=== PATIENT | male | born 1955 | race Caucasian/White ===

== ENCOUNTER 2019-01-13 09:10 | Inpatient (IN) | payer OTHER ==
[2019-01-04 12:41] LABS: URINE BILIRUBIN NEGATIVE (Negative); URINE BLOOD NEGATIVE (Negative); URINE CLARITY CLEAR; URINE COLOR YELLOW; URINE GLUCOSE-RANDOM* NEGATIVE (Negative); URINE KETONES NEGATIVE (Negative); URINE LEUKOCYTES-REFLEX NEGATIVE (Negative); URINE NITRITE-REFLEX NEGATIVE (Negative); URINE PROTEIN (DIPSTICK) NEGATIVE (Negative)
[2019-01-04 12:51] LABS: HEMATOCRIT 46.3 % (42.0-52.0); HEMOGLOBIN 15.4 gm/dL (14.0-18.0); MCH 31.8 pg (26.0-34.0); MCHC 33.2 g/dL (28.0-37.0); MCV 95.8 fL (80.0-100.0); RBC 4.83 mil/uL (4.50-6.00); RDW 13.5 % (10.5-14.5); WBC 7.5 thou/uL (4.0-11.0)
[2019-01-04 12:55] LABS: ALBUMIN 4.3 g/dL (3.4-5.0); CALCIUM 9.4 mg/dL (8.5-10.1); POTASSIUM 4.3 mmol/L (3.5-5.1)
[2019-01-04 12:59] LABS: PROTIME 10.5 Seconds (9.3-11.4)
--- NOTE | 2019-01-04 14:09 | NUR ---
BP ELEVATED AT PAC APPT. 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 PATIENT INSTRUCTED TO SEE PCP PRIOR TO SURGERY TO EVALUATE BP.
[2019-01-05 02:08] LABS: GLYCOHEMOGLOBIN (HGB A1C) 6.7 % (4.8-5.6)
--- NOTE | 2019-01-06 12:47 | EKG ---
[address] [address] ELECTROCARDIOGRAM REPORT Name: FEDERICA SAMPSON Room #: PRE IN [facility]#: [id number] Admission: Attend Phys: Derick Hassan MD Discharge: Date of : 59 Report #: [id number] THIS REPORT FOR: //name// [facility] Test Date: 2019-01-04 Test Time: 12:20:47 Pat Name: FEDERICA SAMPSON Department: Room: Gender: Rod Pointer: Ben PARRA : 1955 Requested By: Derick Hassan Order Number: [id number] MD: Onur Burch Measurements Intervals [place] Rate: 73 P: 54 PA: 150 QRS: 8 QRSD: 83 T: 19 QT: 353 QTc: 389 Interpretive Statements Sinus rhythm Normal tracing No previous ECG available for comparison Electronically Signed On 01-06-2019 12:47:31 CAPPING MACHINE OPERATOR by Onur Burch [email or web address] <ELECTRONICALLY SIGNED> By: Onur Burch MD, [facility] 01/06/19 1247 1220 1220 Onur Burch MD, FACC /EPI
--- NOTE | 2019-01-09 10:53 | NUR ---
PATIENT CALLED IN AND REPORTED THAT HE SAW HIS PCP REGARDING HIS BP. PCP STARTED HIM ON A BLOOD PRESSURE MEDICINE, PATIENT INSTRUCTED TO TAKE MEDICINE DOS. MEDICINE ADDED TO HIS LIST OF MEDICATIONS.
[~2019-01-13] VITALS: Ht 182.9 cm; Wt 107.5 kg
[~2019-01-13 09:10] MED LIST: CANDESARTAN CIL16 MG PO; FISH OIL 1,0001 EAC9 PO; IBUPROFEN 400400 M1 PO; INDOMETHACIN 5050 M1 PO; ZYLOPRIM300 MG PO
[2019-01-16 08:54] VITALS: BP 136/75
[2019-01-16 13:45] VITALS: BP 145/73
[2019-01-16 14:15] VITALS: BP 135/74
[2019-01-16 14:45] VITALS: BP 121/68
[2019-01-16 15:15] VITALS: BP 122/73
--- NOTE | 2019-01-16 18:47 | NUR ---
PT ARRIVED ON THE UNIT FROM OR. PT VSS, REPORTS PAIN CONTROLLED WITH ORAL ANALGESIC. PT WORKED WITH OT AND WHEN HE STOOD UP HE VOMITED X1. NURSE GAVE REGLAN IV ORDERED. PT IS ABLE TO TOLERATE JELLO AND CLEAR LIQUIDS AT THIS TIME. DRESSING IS DRY AND INTACT, ICE PACK ON RIGHT HIP. CALL LIGHT AND PERSONAL ITEMS IN REACH. WILL CONTINUE TO MONITOR.
[2019-01-16 19:43] VITALS: BP 133/82
--- NOTE | 2019-01-17 03:11 | NUR ---
ASSESSMENT COMPLETED.PT C/O PAIN ON HIS R HIP,MANAGED WITH PO MED.BLUE HOSE AND SCD'S TO BLE.PT CONT ON IVF AND IV ABX ORDERED.URINAL AT BEDSIDE.POST OP DRSG C/D/I.HEMOVAC IN PLACE.BG MONITORED ORDERED AT HS,WAS 154.ICE PACK TO R HIP.PT ATE SOME MORE JELLO THIS SHIFT,ABLE TO KEEP IT DOWN.PT RESTING ON HIS BED AT THIS TIME.FALL PRECAUTIONS IN PLACE,CALL LIGHT WITHIN REACH.
[2019-01-17 04:15] VITALS: BP 125/72
[2019-01-17 05:52] LABS: MCH 32.4 pg (26.0-34.0); MCHC 33.4 g/dL (28.0-37.0); MCV 97.1 fL (80.0-100.0); RBC 3.7 mil/uL (4.50-6.00); RDW 13.7 % (10.5-14.5); WBC 10.6 thou/uL (4.0-11.0)
[2019-01-17 06:08] LABS: CALCIUM 9.1 mg/dL (8.5-10.1); POTASSIUM 3.9 mmol/L (3.5-5.1)
[2019-01-17 08:15] VITALS: BP 114/71
--- NOTE | 2019-01-17 12:26 | O ---
[place] [address] OPERATIVE REPORT Name: FEDERICA SAMPSON Room #: 446-P [facility] IN M.R.#: [id number] Admission: 01/16/19 Attend Phys: Derick Hassan MD Discharge: Date of : 59 Report #: [id number] THIS REPORT FOR: //name// CC: Clinton Hassan DATE OF SERVICE: 01/16/2019 PREOPERATIVE DIAGNOSIS: End-stage degenerative arthritis, right hip. POSTOPERATIVE DIAGNOSIS: End-stage degenerative arthritis, right hip. PROCEDURE: Right total hip arthroplasty. SURGEON: Derick Hassan MD INDICATIONS: This 63-year-old gentleman has rather severe degenerative arthritis of the right hip with complete loss of joint space and some cystic degeneration of both the femoral head and acetabulum. He also has degenerative lumbar spondylosis with mild spondylolisthesis and some radiculopathy. It appears that the right hip pain is the more significant of these 2 problems. He has elected to go ahead with right total hip arthroplasty. DESCRIPTION OF PROCEDURE: The patient was taken to the operating room where he was placed under general anesthesia. Prophylactic intravenous antibiotics were administered. He was turned to the left lateral decubitus position. The right hip, thigh and leg were meticulously prepped and draped. A slightly curving posterolateral skin incision was made. This was carried through subcutaneous tissues and fascia to expose the posterior aspect of the hip joint. The short external rotators and capsule were taken down and preserved with several FiberWire sutures. The hip was dislocated posteriorly. Marked degenerative change in both the femoral head and acetabulum was noted. 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 A femoral neck osteotomy was performed. The canal was then prepared using reamers and hand broaches. The Juarez and Nephew hip system was utilized. The size 16 press-fit stem seemed to fit most appropriately. The calcar was trimmed down to an appropriate level. Attention was then directed to the acetabulum. Adequate exposure was established and the acetabulum was sequentially reamed, gradually advancing to a 56 mm reamer. A 56 mm outside diameter three-hole hemispherical StikTite shell was then inserted. This was placed in alignment with his true acetabulum, positioned this in about 20 degrees of anteversion and about 45 degrees off of vertical. It seated nicely and appeared to be secure. In addition, 3 cancellous screws were placed through the apex of the shell engaging good periacetabular bone. Excellent purchase was established. A 40-mm polyethylene liner was then inserted, positioning this with the 20-degree elevated rim at about the 10 o'clock posterior position. It seated nicely and [address] [place] [address] OPERATIVE REPORT Name: FEDERICA SAMPSON Room #: 446-P [facility] IN M.R.#: [id number] Admission: 01/16/19 Attend Phys: Derick Hassan MD Discharge: Date of : 59 Report #: [id number] appeared to be secure. A trial reduction was then performed. A 16 size femoral component with a high offset neck angle seemed to fit most appropriately. Several neck lengths were tried and a +4 mm neck length seemed to fit most appropriately. This resulted in satisfactory alignment, range of motion, stability and leg length. The trial stem was removed and the permanent Juarez and Nephew size 16 Synergy porous high offset stem was then inserted. This was impacted into position in about 15-20 degrees of anteversion. It seated nicely and appeared to be secure. A size 40 Oxinium femoral head with a +4 mm neck sleeve was then inserted. This was impacted on the Basilio taper. It seated nicely and appeared to be secure. The hip was then reduced. Alignment, range of motion, stability and leg length were assessed and felt to be satisfactory. The entire wound was copiously irrigated. Good hemostasis was established. The short external rotators and capsule were repaired back to bone using several drill holes through the greater trochanter. Excellent hip stability was established. A single Hemovac was left in the wound exiting through a separate stab incision. The fascia was then closed with multiple #1 Vicryl sutures. The subcutaneous tissues were closed with 0 Monocryl. The skin was closed with skin niki. A sterile dressing was applied. The patient was awakened and returned to recovery room in good condition. <ELECTRONICALLY SIGNED> By: Derick Hassan MD 01/17/19 1226 1157 1245 Derick Hassan MD /nt
--- NOTE | 2019-01-17 13:48 | NUR ---
PT ADMITTED RLEATED TO S/P R THR. CM REVIEWED CHART AND SPOKE WITH CARE TEAM. CM MET WITH PT AT BEDSIDE THIS DAY. PT IS A&O X4. CM ROLE INTRODUCED. PT INDICATED HE LIVES IN A HOUSE ALONE, BUT THAT HE PLANS TO DISCHARGE TO HIS FRIENDS HOUSE UPON DC. PT INIDCATED THERE WILL BE 2 STEPS FOR HIM THE ENTER THE HOME UPON DC AND THEN ALL NEEDS ON 1 LEVEL. PT INIDCATED HE HAD USED A CANE AT TIME SCOUT SNIPER. PT INIDCATED HIS FRIEND HAS A 4WW THAT HE CAN USE UPON DC BUT THAT HE WOULD NEED A FWW ISSUED UPON DC. PT WORKED WITH PT YESTERDAY AND TODAY AND PT IS HAVING [employer] AND VOMITING. PT NOT SURE IF HE WILL NEED HH OR OP PT AND OT. CM TO FOLLOW INDICATED WITH DC PLANNING.
[2019-01-17 16:39] VITALS: BP 114/55
--- NOTE | 2019-01-17 17:20 | NUR ---
PT IS AOX4, VSS, PAIN CONTROLLED WITH ORAL ANALGESIC. PT EXPERIENCED N/V WHILE WORKING WITH PHYSICAL THERAPY. PT VOMITED X2, RECEIVED REGLAN IV ORDERED. PT TOLERATING REGULAR DIET, NURSE REMOVED HEMOVAC DRAIN FROM RIGHT LEG. HIP DRESSING REMAINS CLEAN, DRY, & INTACT. IV IS PATENT IN RIGHT HAND. PT RECIEVED MUSCLE RELAXER FOR SPASMS IN RIGHT LEG ORDERED. CALL LIGHT/PERSONAL ITEMS IN REACH. WILL CONTINUE TO MONITOR PT.
[2019-01-17 20:38] VITALS: BP 136/62
--- NOTE | 2019-01-18 02:03 | NUR ---
ASSUMED PT CARE AT 1900. PT DESCRIBES A PAINFUL SPASM IN UPPER RIGHT HIP THAT COMES AND GOES, TYLENOL GIVEN WITH PARTIAL RELIEF. NO BOWEL MOVEMENT TODAY. NO INSULIN GIVEN PER SLIDING SCALE. RESTED QUIETLY MAJORITY OF EVENING.
[2019-01-18 06:00] LABS: HEMATOCRIT 35.1 % (42.0-52.0); HEMOGLOBIN 11.6 gm/dL (14.0-18.0); MCH 32.1 pg (26.0-34.0); MCHC 33.1 g/dL (28.0-37.0); RBC 3.62 mil/uL (4.50-6.00); RDW 13.6 % (10.5-14.5); WBC 11.6 thou/uL (4.0-11.0)
[2019-01-18 08:19] VITALS: BP 111/67
--- NOTE | 2019-01-18 11:23 | NUR ---
I have reviewed the documentation by KIKI FERNÁNDEZ from 01/18/19 to 01/18/19 and I concur with it. CLARIBEL DIAZ
[2019-01-18 15:45] VITALS: BP 111/67
[2019-01-18 15:50] VITALS: BP 111/67
--- NOTE | 2019-01-18 15:51 | NUR ---
Faxed Referral to [facility]. Spoke with Gala in Intake. She received Referral and accepted Discharge. DP to follow.
--- NOTE | 2019-01-18 15:59 | NUR ---
CARE TEAM INDICATED THAT PT WOULD BENEFIT FROM HOME HEALTH SERVICES PT AND OT UPON DC. PT IS TO DC [place] [facility] [place] [address] [facility] [address] BEST PHONE NUMBER FOR PT IS . REFERRAL WAS SENT TO [facility] AND THEY CAN ACCEPT PT. PT FWW WAS DELIVERED BY [facility]. NO OTHER CM INTERVETNION INDICATED. CASE CLOSED.
[2019-01-18 16:15] VITALS: BP 126/69
[2019-01-18 18:07] VITALS: BP 111/67
--- NOTE | 2019-01-18 18:30 | NUR ---
PT ASSESSED AT START OF SHIFT. DOING WELL W/ THERAPY. DSNG DRY AND INTACT. PAIN MANAGED W/ TYLENOL AND FLEXERIL. DR. NAYLOR IN AND DC'D PT HOME W/ HOME HEALTH AT THIS TIME.
--- NOTE | 2019-01-19 09:36 | NUR ---
PATIENT DISCHARGED YESTERDAY, 01/18/19 TO [facility]. FAXED DC ORDERS. SPOKE WITH JUDY WHO RECEIVED ORDERS AND WILL SEE TODAY, Wednesday01/19/19.
--- NOTE | 2019-01-20 15:28 | D ---
[facility] [place] [address] DISCHARGE SUMMARY Name: FEDERICA SAMPSON Room #: 446-P [facility] IN ..#: [id number] Admission: 01/16/19 Attend Phys: Derick Hassan MD Discharge: 01/18/19 Date of : 59 Report #: [id number] THIS REPORT FOR: //name// CC: Clinton Hassan DATE OF SERVICE: 01/18/2019 FINAL DIAGNOSIS: End-stage degenerative arthritis, right hip. OPERATIVE PROCEDURE: Right total hip arthroplasty. SURGEON: Dr. Derick Hassan. HISTORY OF PRESENT ILLNESS: This 63-year-old gentleman has moderate degenerative spondylosis, low back and more severe degenerative arthritis of the right hip, both are causing symptoms. The hip seems to be the bigger problem and he has elected to go ahead with right total hip arthroplasty. HOSPITAL COURSE: The patient was admitted and taken to the operating room on 01/16/2019. He underwent right total hip arthroplasty, which he tolerated well. Postoperatively, his course has been largely unremarkable. He had minimal Hemovac drainage and the drain was removed. He was able to advance to regular diet and advanced to ambulation with assistance and then independent ambulation using a walker. He has advanced from IV analgesics to oral analgesics. He is on Xarelto as an anticoagulation regimen. He now seems safe and independent and is anxious for hospital discharge. He has made arrangements for assistance at home and some home therapy followed by outpatient therapy. DISCHARGE MEDICATIONS: Include allopurinol 300 mg daily, fish oil 1000 mg daily, hydrocodone 10 mg q.6 hours p.r.n. for pain, Xarelto 10 mg daily. He will continue with gentle independent exercise and a walker for safety as well as some visiting therapy at home. I will see him back in 1 week for routine followup and then 2 weeks for suture removal. <ELECTRONICALLY SIGNED> By: Derick Hassan MD 01/20/19 1528 1712 [id number] Derick Hassan MD /nt
== END 2019-01-18 18:30 | disposition home health service (06) | DRG 470 ==
LOC: PRE 09:10 → 4S 01-16 08:03 → TBA 01-16 08:03 → PRE 01-16 11:02 → 4S 01-16 14:38 → ENTRNSPT 01-18 18:30
PROVIDERS: Nurse Practitioner Family; ADMIT Orthopaedic Surgery
PROC: 0SR906Z Replacement of Right Hip Joint with Oxidized Zirconium on Polyethylene Synthetic Substitute, Open Approach (ICD-10-PCS; principal; 2019-01-16)
DX: M16.11 Unilateral primary osteoarthritis, right hip (principal); M54.5 Low back pain; E11.42 Type 2 diabetes mellitus with diabetic polyneuropathy; I10 Essential (primary) hypertension; G89.29 Other chronic pain; M10.9 Gout, unspecified; M47.26 Other spondylosis with radiculopathy, lumbar region; Z79.891 Long term (current) use of opiate analgesic; Z79.899 Other long term (current) drug therapy
CPT/HCPCS: 10102; 50010; 50101; 50382; 50414; 51412; 51771; 53000; 53368; 56521; 56525; 56530; 57095; 62110; 62900; 70005